=== PATIENT | female | born 1990 | race Caucasian/White ===

== ENCOUNTER 2019-03-17 20:53 | Emergency (ER) | payer OTHER, SELFPAY ==
[2019-03-17 21:00] VITALS: BP 141/80; PULSE 73; RESP 18; TEMP 36.6; O2SAT 100
[2019-03-17 21:25] LABS: Basophils Percent Auto 0.3 % (0.2-1.2); Hematocrit 42.9 % (37.0-47.0); Hemoglobin 14.7 g/dL (12.0-15.0); Immature Granulocyte Absolute 0.01 K/mm3 (0.00-0.031); Immature Granulocyte Percent A 0.2 % (0-0.5); Lymphocytes Absolute Auto 2.13 K/mm3 (0.9-3.2); Lymphocytes Percent Auto 32.4 % (18.3-44.2); Mean Corpuscular HGB Conc 34.3 g/dl (32-36); Mean Corpuscular Hemoglobin 30.6 pg (26-34); Mean Corpuscular Volume 89.2 fl (80-100); Mean Platelet Volume 10.2 fl (7.4-10.4); Monocytes Absolute Auto 0.6 K/mm3 (0.1-0.6); Monocytes Percent Auto 8.7 % (2.6-8.5); Neutrophils Absolute Auto 3.9 K/mm3 (1.3-6.7); Neutrophils Percent Auto 58.4 % (45.5-73.1); Platelet Count Result 194 k/mm3 (150-375); Red Blood Count 4.81 M/mm3 (4.2-5.4); Red Cell Distribution Width 11.9 % (11.5-14.5); White Blood Count 6.6 K/mm3 (4.5-10.0)
[2019-03-17 21:37] LABS: Alanine Aminotransferase 21 U/L (4-35); Alkaline Phosphatase 59 U/L (38-126); Aspartate Amino Transferase 24 U/L (14-36); Bilirubin,Total 0.5 mg/dL (0.2-1.3); Blood Urea Nitrogen 13 mg/dL (7-17); Calcium 9.4 mg/dL (8.4-10.2); Carbon Dioxide 27 mmol/L (22-30); Chloride 100 mmol/L (98-107); Estimated CRCL calculation 123 ml/min; Estimated Glomerular Filt Rate > 60; Glucose 97 mg/dL (65-105); Lipase 61 U/L (23-300); Potassium 3.7 mmol/L (3.4-5.0); Sodium 141 mmol/L (137-145)
--- NOTE | 2019-03-17 22:54 | ED.URI ---
HPI - URI/Sore Throat General Chief Complaint: Upper Respiratory Infection Stated Complaint: flu? Time Seen by Provider: 03/17/19 22:27 Source: patient Mode of arrival: ambulatory Limitations: no limitations History of Present Illness HPI Narrative: Healthy 28-year-old female Had no influenza vaccination this year Complains of a four-day history of cough muscle aches chills sweats fever No urinary symptoms Did have some nausea today Positive for influenza A at triage Similarly unimmunized boyfriend also getting sick now MD elicited complaint: fever, cough and rhinorrhea Onset (ago): day(s) Consistency: constant Severity: moderate Able to tolerate fluids by mouth: Yes Relieving factors: nothing Context: sick contacts Related Data Home Medications Medication Instructions Recorded Confirmed No Home Medications 03/17/19 03/17/19 Allergies Allergy/AdvReac Type Severity Reaction Status Date / Time [place] And Derivatives Allergy Intermediate Hives / Verified 03/17/19 21:03 Red Face grapefruit Allergy Unknown Unknown Verified 03/17/19 21:03 Review of Systems Constitutional: Constitutional: Reports chills, Reports fatigue and Reports fever(s) Eyes: Eyes: Reports no additional eye complaints ENT: Reports nasal congestion Cardiovascular: Cardiovascular: Denies chest pain Respiratory: Respiratory: Reports cough and Denies dyspnea Gastrointestinal: Gastrointestinal: Denies constipation and Reports nausea Musculoskeletal: Musculoskeletal: Reports myalgias Integumentary/Breasts: Skin/Breast: Denies rash Neurologic: Denies focal weakness [facility] Social History Social History Gender identity (if verbalized by the patient): Female Exam Const: General: no acute distress Orientation/consciousness: patient oriented x3 HENMT: Mouth: Yes moist mucous membranes Throat: posterior oropharynx normal Eyes: Conjunctivae: conjunctivae normal Resp: Effort & Inspection: normal respiratory effort Auscultation: clear to auscultation bilaterally Cardio: Rate: regular rate Rhythm: regular rhythm GI: GI Palp: Yes Soft to palpation and No Tenderness to palpation present (GI) : General: Yes no CVA tenderness Skin: General skin exam: normal color Rashes: no rashes Neuro: General: patient oriented x3 Course Course Emergency Course: d/w pt too late for tamiflu, not too late to try to avoid infecting others Vital Signs Vital signs: Vital Signs Temperature 36.6 C 03/17/19 21:00 Pulse Rate 73 03/17/19 21:00 Respiratory Rate 18 03/17/19 21:00 Blood Pressure 141/80 H 03/17/19 21:00 Pulse Oximetry 100 03/17/19 21:00 Temperature 36.6 C 03/17/19 21:00 Pulse Rate 73 03/17/19 21:00 Respiratory Rate 18 03/17/19 21:00 Blood Pressure 141/80 H 03/17/19 21:00 Pulse Oximetry 100 03/17/19 21:00 MDM - URI/Sore Throat Lab Data Result diagrams: 03/17/19 21:17 03/17/19 21:17 Labs: Lab Results 03/17/19 03/17/19 Range/Units 21:17 21:17 WBC 6.6 (4.5-10.0) K/mm3 RBC 4.81 (4.2-5.4) M/mm3 Hgb 14.7 (12.0-15.0) g/dL Hct 42.9 (37.0-47.0) % MCV 89.2 (80-100) fl MCH 30.6 (26-34) pg MCHC 34.3 (32-36) g/dl RDW 11.9 (11.5-14.5) % Plt Count 194 (150-375) k/mm3 MPV 10.2 (7.4-10.4) fl Immature Gran % (Auto) 0.2 (0-0.5) % Neut % (Auto) 58.4 (45.5-73.1) % Lymph % (Auto) 32.4 (18.3-44.2) % [place] % (Auto) 8.7 H (2.6-8.5) % Eos % (Auto) 0.0 (0-4.4) % Baso % (Auto) 0.3 (0.2-1.2) % Lymph # (Auto) 2.13 (0.9-3.2) K/mm3 Amelia # (Auto) 0.6 (0.1-0.6) K/mm3 Eos # (Auto) 0.0 (0-0.3) K/mm3 Baso # (Auto) 0.0 (0.0-0.1) K/mm3 Abs Immat Gran (auto) 0.01 (0.00-0.031) K/mm3 Absolute Neuts (auto) 3.9 (1.3-6.7) K/mm3 Absolute Nucleated RBC 0.0 (0.0-0.012) K/mm3 Nucleated RBC % 0.0 (0.0-0.2) % Sodium 141 (137-145)
[2019-03-17 23:25] LABS: Add Urine Microscopic? YES; Appearance Urine Clear (Clear); Bilirubin Urine Negative (Negative); Blood Urine Negative (Negative); Color Urine Yellow (Yellow); Glucose Urine UA Negative (Negative); Ketones Urine 1+ mg/dL (Negative); Leukocyte Esterase Ur Negative LEU/UL (Negative); Mucus Urine Moderate /lpf; Nitrate Urine Negative (Negative); Protein Urine 1+ mg/dL (Negative); RBC Urine 0-2 /hpf (0-2); Squamous Epithelial Cell Urine Moderate /hpf (Few); Urobilinogen Urine Negative mg/dL (<2.0); WBC Urine 0-3 /hpf
[2019-03-17 23:27] LABS: Specific Grav Ur 1.035 (1.001-1.035)
[2019-03-17 23:28] VITALS: BP 115/62; PULSE 81; RESP 16; TEMP 36.8; O2SAT 100
== END 2019-03-17 23:29 | disposition home or self-care (01) ==
PROVIDERS: Emergency Medicine; Emergency Provider Emergency Medicine; PCP Physician Assistant
DX: J10.1 Influenza due to other identified influenza virus with other respiratory manifestations (principal)
CPT/HCPCS: 36415; 80053; 81001; 81025; 83690; 85025; 87804; 99283

== ENCOUNTER 2020-10-16 15:58 | Emergency (ER) | payer OTHER, SELFPAY ==
[2020-10-16 16:03] VITALS: BP 122/65; PULSE 60; RESP 16; TEMP 36.3; O2SAT 100
[2020-10-16 16:25] VITALS: BP 117/84; PULSE 66; RESP 18; O2SAT 100
--- NOTE | 2020-10-16 16:33 | ECG_ITS ---
Measurements Intervals [place] Rate: 54 P: 42 [place]: 194 QRS: 27 QRSD: 109 T: 32 QT: 406 QTc: 388 Interpretive Statements SINUS BRADYCARDIA MINIMAL Q WAVES- INFERIOR LEADS BORDERLINE ECG Electronically Signed On 10-16-2020 20:15:20 CDT by Umair Nicole D.O.
--- NOTE | 2020-10-16 16:34 | ED.GENADULT ---
HPI - General Adult General Chief complaint: Dizziness Stated complaint: Dizzy x 3 days,nausea Time Seen by Provider: 10/16/20 16:27 History of Present Illness HPI narrative: Patient is a 30-year-old female presents the emergency department with chief complaint of dizziness. Patient reports that over the last several days she has had whenever she stands up she feels very lightheaded and then feels as though her head is tilting backwards. The patient reports has been tested for COVID-19 reports that she was not vaccinated. Patient denies fever denies vomiting but reports has had some nausea with this. Patient reports that she has Implanon and has not had a period in approximately 2 years Related Data Allergies Allergy/AdvReac Type Severity Reaction Status Date / Time [place] And Derivatives Allergy Intermediate Hives / Verified 10/16/20 16:18 Red Face grapefruit Allergy Unknown Unknown Verified 10/16/20 16:18 Review of Systems Review of Systems: A 10 system review of systems was completed on the patient and is negative except for what is stated in the HPI. Nursing and ancillary documentation was reviewed. [facility] Social History Social History Gender identity (if verbalized by the patient): Female Exam Narrative: GENERAL: Well-appearing, well-nourished, and in no acute distress. HEAD: Normocephalic, atraumatic. EYES: PERRLA and EOMI. ENT: Nares clear, no rhinorrhea or epistaxis. Mucous membranes moist. NECK: Supple. CHEST: Clear to auscultation. No respiratory distress. HEART: Regular rate and rhythm. No murmur heard. Normal peripheral pulses. ABDOMEN: Soft, nontender, nondistended, normal active bowel sounds. EXTREMITIES: Normal range of motion. No edema. SKIN: Warm, dry, no rash. NEURO: No focal deficits. Alert and oriented x3. PSYCH: Normal mood and affect. Course Vital Signs Vital signs: Vital Signs Temperature 36.3 C L 10/16/20 16:03 Pulse Rate 60 10/16/20 16:03 Respiratory Rate 16 10/16/20 16:03 Blood Pressure 122/65 10/16/20 16:03 Pulse Oximetry 100 10/16/20 16:03 Temperature 36.3 C L 10/16/20 16:03 Pulse Rate 65 10/16/20 18:48 Respiratory Rate 18 10/16/20 18:48 Blood Pressure 127/66 10/16/20 18:48 Pulse Oximetry 100 10/16/20 18:48 Medical Decision Making Vital Signs Vital Signs: Vital Signs Temperature 36.3 C L 10/16/20 16:03 Pulse Rate 60 10/16/20 16:03 Respiratory Rate 16 10/16/20 16:03 Blood Pressure 122/65 10/16/20 16:03 Pulse Oximetry 100 10/16/20 16:03 Temperature 36.3 C L 10/16/20 16:03 Pulse Rate 65 10/16/20 18:48 Respiratory Rate 18 10/16/20 18:48 Blood Pressure 127/66 10/16/20 18:48 Pulse Oximetry 100 10/16/20 18:48 Lab Data Result diagrams: 10/16/20 16:41 10/16/20 16:41 Labs: Lab Results 10/16/20 10/16/20 10/16/20 Range/Units 16:41 16:41 17:04 WBC 7.3 (4.5-10.0) K/mm3 RBC 4.66 (4.2-5.4) M/mm3 Hgb 14.1 (12.0-15.0) g/dL Hct 42.3 (37.0-47.0) % MCV 90.8 (80-100) fl MCH 30.3 (26-34) pg MCHC 33.3 (32-36) g/dl RDW 11.8 (11.5-14.5) % Plt Count 236 (150-375) k/mm3 MPV 9.9 (7.4-10.4) fl Immature Gran % (Auto) 0.3 (0-0.5) % Neut % (Auto) 45.5 (45.5-73.1) % Lymph % (Auto) 44.3 H (18.3-44.2) % [place] % (Auto) 6.7 (2.6-8.5) % Eos % (Auto) 2.6 (0-4.4) % Baso % (Auto) 0.6 (0.2-1.2) % Lymph # (Auto) 3.22 H (0.9-3.2) K/mm3 [place] # (Auto) 0.5 (0.1-0.6) K/mm3 Eos # (Auto) 0.2 (0-0.3) K/mm3 Baso # (Auto) 0.0 (0.0-0.1) K/mm3 Abs Immat Gran (auto) 0.02 (0.00-0.031) K/mm3 Absolute Neuts (auto) 3.3 (1.3-6.7) K/mm3 Absolute Nucleated RBC 0.0 (0.0-0.012) K/mm3 Nucleated RBC % 0.0 (0.0-0.2) % Sodium 139 (137-145) mmol/L Potassium 4.3 (3.4-5.0) mmol/L Chloride 109 H (98-107) mmol/L Carbon Dioxide
[2020-10-16 16:54] LABS: Basophils Percent Auto 0.6 % (0.2-1.2); Eosinophils Absolute Auto 0.2 K/mm3 (0-0.3); Eosinophils Percent Auto 2.6 % (0-4.4); Hematocrit 42.3 % (37.0-47.0); Hemoglobin 14.1 g/dL (12.0-15.0); Immature Granulocyte Absolute 0.02 K/mm3 (0.00-0.031); Immature Granulocyte Percent A 0.3 % (0-0.5); Lymphocytes Absolute Auto 3.22 K/mm3 (0.9-3.2); Lymphocytes Percent Auto 44.3 % (18.3-44.2); Mean Corpuscular HGB Conc 33.3 g/dl (32-36); Mean Corpuscular Hemoglobin 30.3 pg (26-34); Mean Corpuscular Volume 90.8 fl (80-100); Mean Platelet Volume 9.9 fl (7.4-10.4); Monocytes Absolute Auto 0.5 K/mm3 (0.1-0.6); Monocytes Percent Auto 6.7 % (2.6-8.5); Neutrophils Absolute Auto 3.3 K/mm3 (1.3-6.7); Neutrophils Percent Auto 45.5 % (45.5-73.1); Platelet Count Result 236 k/mm3 (150-375); Red Blood Count 4.66 M/mm3 (4.2-5.4); Red Cell Distribution Width 11.8 % (11.5-14.5); White Blood Count 7.3 K/mm3 (4.5-10.0)
[2020-10-16] MEDS: MECLIZINE HCL 25 MG TABLET PO (17:02)
[2020-10-16 17:04] LABS: Alanine Aminotransferase 26 U/L (4-35); Albumin Level 3.9 g/dL (3.5-5.1); Alkaline Phosphatase 50 U/L (38-126); Anion Gap 4 mmol/L (8-16); Aspartate Amino Transferase 19 U/L (14-36); Bilirubin,Total 0.1 mg/dL (0.2-1.3); Blood Urea Nitrogen 9 mg/dL (7-17); Calcium 9.1 mg/dL (8.4-10.2); Carbon Dioxide 26 mmol/L (22-30); Chloride 109 mmol/L (98-107); Estimated CRCL calculation 124 ml/min; Estimated Glomerular Filt Rate > 60; Glucose 95 mg/dL (65-110); Magnesium 2.2 mg/dL (1.6-2.3); Potassium 4.3 mmol/L (3.4-5.0); Sodium 139 mmol/L (137-145)
[2020-10-16 17:06] VITALS: BP 120/68; PULSE 54
[2020-10-16 17:07] VITALS: BP 128/79; PULSE 60
[2020-10-16 17:09] VITALS: BP 111/76; PULSE 64
[2020-10-16 17:22] LABS: Add Urine Microscopic? NO; Appearance Urine Clear (Clear); Bilirubin Urine Negative (Negative); Blood Urine Negative (Negative); Color Urine Yellow (Yellow); Glucose Urine UA Negative (Negative); Ketones Urine Negative (Negative); Leukocyte Esterase Ur Negative LEU/UL (Negative); Nitrate Urine Negative (Negative); Protein Urine Negative (Negative); Specific Grav Ur 1.019 (1.001-1.035); Urobilinogen Urine Negative mg/dL (<2.0)
[2020-10-16] MEDS: SODIUM CHLORIDE 0.9% IV 1,000 ML 999 ML IV CONT (17:30)
[2020-10-16 18:48] VITALS: BP 127/66; PULSE 65; RESP 18; O2SAT 100
== END 2020-10-16 19:28 | disposition home or self-care (01) ==
PROVIDERS: Emergency Provider Emergency Medicine; PCP Physician Assistant
DX: H81.10 Benign paroxysmal vertigo, unspecified ear (principal); R00.1 Bradycardia, unspecified; R94.31 Abnormal electrocardiogram [ECG] [EKG]
CPT/HCPCS: 36415; 80053; 81003; 81025; 83735; 85025; 93005; 96360; 99283; A9270; J7030

== ENCOUNTER 2021-07-20 13:39 | Emergency (ER) | payer BC, MEDICAID, SELFPAY ==
[2021-07-20 13:54] VITALS: BP 119/62; PULSE 65; RESP 16; TEMP 36.7; O2SAT 98
--- NOTE | 2021-07-20 14:13 | ED.SKABFB ---
HPI - Skin/Abscess/Foreign Bdy General Chief complaint: Skin/Abscess/Foreign Body Stated complaint: sore throat, requested steroid shot Time Seen by Provider: 07/20/21 14:13 Source: patient Mode of arrival: ambulatory Limitations: no limitations History of Present Illness HPI narrative: 20-year-old female presents with complaint of poison lexi for approximately 2 weeks. Reports that it started to arms traveled to face, improved to face and again last night face was red and swollen. Reports she has a new patch of poison lexi to her right groin area. States that her boyfriend went fishing and then came home and slept in bed and spread poison lexi to third bedsheets. She states that she has taken 2 rounds of steroids prescribed by her primary care physician. Called him today and told him that the poison lexi rash was still spreading and was told to come to urgent care for an steroid shot. Patient is not applying any steroid cream. Is applying a Benadryl cream for the itching which she states is not helping. All systems reviewed and negative except as noted above. Related Data Allergies Allergy/AdvReac Type Severity Reaction Status Date / Time [place] And Derivatives Allergy Intermediate Hives / Verified 07/20/21 13:51 Red Face grapefruit Allergy Unknown Unknown Verified 07/20/21 13:51 Review of Systems Review of Systems: CONSTITUTIONAL: Denies fever, chills, or sweats. EYES: Denies visual changes, redness, or discharge. ENT: Denies rhinorrhea, congestion, sore throat, or otalgia. CARDIOVASCULAR: Denies chest pain, palpitations, or edema. RESPIRATORY: Denies cough or dyspnea. GASTROINTESTINAL: Denies abdominal pain, nausea, vomiting, or diarrhea. GENITOURINARY: Denies dysuria or hematuria. SKIN: Reports itchy poison lexi rash. MUSCULOSKELETAL: Denies back pain, joint pain, or myalgia. NEUROLOGIC: Denies headache, numbness, or weakness. PSYCHIATRIC: Denies anxiety or depression. All other systems reviewed are negative, except as documented in HPI. [facility] Social History Social History Gender identity (if verbalized by the patient): Female Comments At time of signature, agree with nursing past medical, surgical, social and family history. There is no relevant family history pertinent to the presenting complaint. Exam Narrative: GENERAL: This is a well-nourished, well-developed patient, in no apparent distress. HEAD: normocephalic, atraumatic. EYES: PERRL. Sclera clear/white. Vision is grossly intact. EARS: External ears normal NOSE: External nose normal NECK: Neck supple, non-tender without lymphadenopathy, masses or thyromegaly. CARDIOVASCULAR: Regular rate and rhythm without murmurs, gallops, or rubs. RESPIRATORY: Clear to auscultation. Breath sounds equal bilaterally. No wheezes, rales, or rhonchi. SKIN: warm, Dry, intact with , good texture and turgor. erythematous vesicular rash to R groin area. rash to both arms is scabbed and improving. no rash noted to face today. NEURO: awake, alert, and oriented to person, place and time. There were no obvious focal neurologic abnormalities. EXTREMITIES: No joint tenderness, effusion, or edema noted. Course Course Level of Care: Express Care Visit Vital Signs Vital signs: Vital Signs Temperature 36.7 C 07/20/21 13:54 Pulse Rate 65 07/20/21 13:54 Respiratory Rate 16 07/20/21 13:54 Blood Pressure 119/62 07/20/21 13:54 Pulse Oximetry 98 07/20/21 13:54 Temperature 36.7 C 07/20/21 13:54 Pulse Rate 65 07/20/21 13:54 Respiratory Rate 16 07/20/21 13:54 Blood Pressure 119/62 07/20/21 13:54 Pulse Oximetry 98 07/20/21 13:54 Reviewed MDM - Skin/Abscess/Foreign Bdy MDM Narrative Medical decision making narrative: Patient is aware of diagnosis, understands and agrees to treatment plan. Anticipatory guidance given. Patient agrees to follow-up as directed and is aware of reasons to s
== END 2021-07-20 14:50 | disposition home or self-care (01) ==
PROVIDERS: Emergency Provider Nurse Practitioner Family; PCP Physician Assistant
DX: L25.5 Unspecified contact dermatitis due to plants, except food (principal)
CPT/HCPCS: 96372; 99213; G0463; J1100

== ENCOUNTER 2022-09-16 11:56 | Emergency (ER) | payer BC, MEDICAID, SELFPAY ==
[2022-09-16 12:04] VITALS: BP 129/79; PULSE 77; RESP 14; TEMP 37.6; O2SAT 100
[2022-09-16 12:24] VITALS: O2SAT 99
[2022-09-16 12:30] VITALS: O2SAT 95
[2022-09-16 12:31] VITALS: BP 119/64; O2SAT 97
--- NOTE | 2022-09-16 14:14 | ED.ALLEREA ---
HPI - Allergic Reaction General Chief complaint: Allergic Reaction Stated complaint: facial swelling - possible allergic reaction Time Seen by Provider: 09/16/22 13:32 Source: patient Limitations: no limitations History of Present Illness HPI narrative: Patient is a 32-year-old female present to the emergency department complaining of an allergic reaction. Patient states that Tuesday night she laid down on a couch and prior to her laying down on the couch her had came home with concrete dust laden clothing and after laying down on the couch she began to notice redness and itchiness on the regions that had touched the couch including the right side of her face and her bilateral arms. Patient denies history of this sort of reaction in the past. Patient admitted to mild swelling associated with the rash. Patient notes the rash is much improved since onset. Patient tried benadryl for the associated itching with moderate relief. Patient admits to a history of allergies, has had allergy panel performed in the past. Patient denies any other new exposures including detergents, soaps, perfumes, environments, food, animals. Patient admits to otherwise feeling well. Denies diarrhea, emesis, tongue swelling, dysphagia, shortness of breath, dysphonia, light headedness, fever, facial swelling. Patient denies discharge from the rash. Denies anyone having similar symptoms. Denies any significant pain associated. Related Data Allergies Allergy/AdvReac Type Severity Reaction Status Date / Time [place] And Derivatives Allergy Intermediate Hives / Verified 09/17/22 21:03 Red Face grapefruit Allergy Unknown Unknown Verified 09/17/22 21:03 [facility] Social History Social History Gender identity (if verbalized by the patient): Female Exam Const: General: healthy appearing and no acute distress Nutritional Appearance: well nourished Orientation/consciousness: patient oriented x3 HENMT: Ears: TM's normal bilaterally and EAC's normal Face/Nose/Sinus: Normal external nose present and Normal nares present Mouth: Yes Normal oral and palatal mucosa present and Yes moist mucous membranes Throat: posterior oropharynx normal and uvula midline Eyes: Conjunctivae: conjunctivae normal Pupils: Equal, round and reactive pupils present EOM: EOMs intact bilaterally Neck: Neck: no meningeal signs Chest: Chest palpation & inspection: normal inspection of the chest Resp: Effort & Inspection: normal respiratory effort Auscultation: clear to auscultation bilaterally Cardio: Rate: regular rate Rhythm: regular rhythm Heart sounds: no murmurs GI: Inspection: non-distended Skin: General skin exam: no petechiae Rashes: rashes noted maculopapular rash bilateral volar forearm arrangement clustered, confluent and grouped, color red and surface blanching and smooth; not indurated, not warm, without crusting and with no discharge; fluctuant not assessed and nontender, maculopapular rash bilateral face arrangement clustered, confluent and grouped, color blanching and red and surface smooth; not indurated, not warm, without crusting and with no discharge; fluctuant not assessed and nontender Neuro: General: patient oriented x3 and moves all extremities Extrem: General: no pedal edema Psych: Mental Status: mental status grossly normal Course Vital Signs Vital signs: Vital Signs Temperature 99.7 F H 09/16/22 12:04 Pulse Rate 77 09/16/22 12:04 Respiratory Rate 14 09/16/22 12:04 Blood Pressure 129/79 09/16/22 12:04 Pulse Oximetry 100 09/16/22 12:04 Oxygen Delivery Room Air 09/16/22 12:04 Temperature 99.7 F H 09/16/22 12:04 Pulse Rate 60 09/16/22 14:33 Respiratory Rate 20 09/16/22 14:33 Blood Pressure 119/72 09/16/22 14:33 Pulse Oximetry 100 09/16/22 14:33 Oxygen Delivery Room Air 09/16/22 12:04 MDM - Allergic Reaction MDM Narrative Medical decision izzy
[2022-09-16] MEDS: methylPREDNISolone SOD SUCC 40 MG VIAL IV PUSH (14:23)
[2022-09-16 14:33] VITALS: BP 119/72; PULSE 60; RESP 20; O2SAT 100
== END 2022-09-16 14:34 | disposition home or self-care (01) ==
PROVIDERS: Emergency Provider Student in an Organized Health Care Education/Training Program; PCP Physician Assistant
DX: L23.9 Allergic contact dermatitis, unspecified cause (principal)
CPT/HCPCS: 96374; 99284; J2920

== ENCOUNTER 2022-09-17 19:41 | Emergency (ER) | payer BC, MEDICAID, SELFPAY ==
[2022-09-17 19:58] VITALS: BP 131/67; PULSE 80; RESP 17; TEMP 36.7; O2SAT 98
== END 2022-09-18 00:14 | disposition left against medical advice (07) ==
PROVIDERS: PCP Physician Assistant
DX: L50.9 Urticaria, unspecified (principal)
CPT/HCPCS: 99199

== ENCOUNTER 2023-07-06 00:52 | Emergency (ER) | payer BC, MEDICAID, SELFPAY ==
[2023-07-06 00:54] VITALS: BP 123/76; PULSE 63; RESP 18; TEMP 36.4; O2SAT 100
[2023-07-06 01:38] LABS: Strep Group A RT-PCR NOT DETECTED (Negative)
[2023-07-06 03:16] LABS: Influenza A QL RT-PCR Negative (Negative); Influenza B QL RT-PCR Negative (Negative); RSV RNA, RT-PCR Negative (Negative); SARS-CoV-2 RNA PCR Negative (Negative)
--- NOTE | 2023-07-06 03:39 | PC.NURSE ---
Pt came up to this RN stating her wait is ridiculous and she is in pain. This RN explained to pt we have a few rooms getting cleaned and she would be going back soon. Pt continued to raise voice at this RN asking what the doctors in the back were even doing and that she deserves to go back because she is paying like the rest of them . Pt kept repeating this is fucking ridiculous! .
--- NOTE | 2023-07-06 03:42 | PC.NURSE ---
Pt exited ER at this time stating I can't take the pain any longer, this is fucking ridiculous! .
== END 2023-07-06 03:50 | disposition left against medical advice (07) ==
PROVIDERS: Emergency Provider Emergency Medicine; PCP Physician Assistant
DX: J02.9 Acute pharyngitis, unspecified (principal); Z20.822 Contact with and (suspected) exposure to COVID-19
CPT/HCPCS: 87637; 87651; 99199